=== PATIENT | female | born 1990 | race Caucasian/White ===

== ENCOUNTER 2022-08-06 08:34 | Day surgery (SDC) | payer MEDICAID ==
[~2022-08-06] VITALS: Ht 170.2 cm; Wt 155.6 kg
[2022-08-06] MEDS ORDERED: CARAFATE PO (09:03)
[2022-08-06] MEDS ORDERED: COLESTID1 GM PO (09:03)
[2022-08-06] MEDS ORDERED: TOPAMAX25 MG PO (09:04)
[2022-08-06] MEDS ORDERED: MONTELUKAST SOD10 MG PO (09:05)
[2022-08-06] MEDS ORDERED: MELOXICAM15 MG PO (09:06)
[2022-08-06] MEDS ORDERED: DICYCLOMINE10 MG PO (09:07)
[2022-08-06] MEDS ORDERED: CYCLOBENZAPRINE10 MG PO (09:08)
[2022-08-06] MEDS ORDERED: OMEPRAZOLE DR40 MG PO (09:09)
[2022-08-06] MEDS ORDERED: ALLOPURINOL100 MG PO (09:10)
[2022-08-06] MEDS ORDERED: AMITRIPTYLINE H50 MG PO (09:11)
[2022-08-06] MEDS ORDERED: BUSPIRONE5 MG PO (09:12)
[2022-08-06 12:23] VITALS: BP 118/76
== END 2022-08-06 10:45 | disposition home or self-care (01) ==
LOC: ORM 08:34
PROVIDERS: ATTEND Physical Medicine & Rehabilitation
DX: M54.16 Radiculopathy, lumbar region (principal)
CPT/HCPCS: J1100; Q9967